=== PATIENT | female | born 1975 | race Caucasian/White ===

== ENCOUNTER 2020-01-14 07:58 | Emergency (ER) | payer SELFPAY ==
[~2020-01-14] VITALS: Ht 157.5 cm; Wt 61.9 kg
--- NOTE | 2020-01-14 08:33 | NUR ---
Patient in bed with single rail up and call light within reach. Family at bedside. Awaiting provider eval.
[2020-01-14] MEDS ORDERED: BICILLIN-LA 1,200,000 UNITS/2 ML IM ONE (09:00)
[2020-01-14] MEDS ORDERED: OXYcodone/APAP 5/325MG TABLET PO ONE (09:00)
[2020-01-14] MEDS ORDERED: DEXAMETHASONE 4 MG/ML, 1ML PO ONE (09:00)
[2020-01-14] MEDS ORDERED: DEXAMETHASONE 4 MG/ML, 5ML ONE (09:13)
[2020-01-14] MEDS ORDERED: OXYcodone/APAP 5/325MG TABLET ONE (09:13)
[2020-01-14 09:23] VITALS: BP 131/70
--- NOTE | 2020-01-14 09:24 | NUR ---
Patient medicated per nov. resting well in [facility] with family at bedside. awaiting dc ppw.
--- NOTE | 2020-01-14 09:47 | NUR ---
Discharge instructions reviewed.
== END 2020-01-14 09:51 | disposition home or self-care (01) ==
LOC: ED 09:02
DX: J02.0 Streptococcal pharyngitis (principal); R11.2 Nausea with vomiting, unspecified; H92.01 Otalgia, right ear
CPT/HCPCS: 87081; 87880; 96372; 99283; J0561; J1100